=== PATIENT | male | born 1935 | race Caucasian/White ===

== ENCOUNTER 2022-04-08 23:13 | Emergency (ER) | payer MEDICARE ==
[2022-04-09 00:07] LABS: #Eosinphils 0.1 thou/uL (0.0-0.7); #Lymphocytes 1.2 thou/uL (1.20-3.40); #Monocytes 1.2 thou/uL (0.11-0.59); #Neutrophils 8.8 thou/uL (1.40-6.50); %Basophils 0.1 % (0.0-1.0); %Eosinophils 0.8 % (0.0-10.0); %Lymphocytes 10.6 % (21.0-51.0); %Monocytes 10.9 % (0.0-10.0); %Neutrophils 77.6 % (42.0-75.0); Hemoglobin 11.4 g/dL (14.0-18.0); Mean Corpuscular Hemoglobin 31.6 pg (27.0-31.0); Mean Corpuscular Volume 95.6 fL (78.0-98.0); Mean Platelet Volume 6.9 fL (7.4-10.4); Platelet Count 173 thou/uL (130-400); RBC Distribution Width 13.7 % (11.5-14.5); Red Blood Cell (RBC) Count 3.62 mill/uL (4.70-6.10); White Blood Cell (WBC) Count 11.4 thou/uL (4.8-10.8)
[2022-04-09 00:23] LABS: ALT (SGPT) 22 U/L (8-55); AST (SGOT) 15 U/L (5-34); Albumin 3.1 g/dL (3.4-4.8); Alkaline Phosphatase 189 U/L (40-110); Anion Gap 13 mmol/L (10-20); BUN (Urea Nitrogen) 17 mg/dL (8.4-25.7); Bilirubin, Total 0.5 mg/dL (0.2-1.2); Calc. Creatinine Clearance 0 mL/min (70-130); Calcium 8.8 mg/dL (7.8-10.44); Carbon Dioxide 20 mmol/L (23-31); Chloride 109 mmol/L (98-107); Estimated GFR 42; Globulin 2.7 g/dL (2.4-3.5); Glucose 134 mg/dL (83-110); Potassium 4.1 mmol/L (3.5-5.1); Protein, Total 5.8 g/dL (5.8-8.1); Sodium 138 mmol/L (136-145)
[2022-04-09] MEDS ORDERED: Acetaminophen 325 MG TAB ONE (00:33)
== END 2022-04-09 03:48 ==
LOC: ERS 23:13
DX: R51.9 Headache, unspecified (principal)
CPT/HCPCS: 36415; 36416; 70450; 71045; 72125; 80053; 83880; 84484; 85025; 93005

== ENCOUNTER 2022-09-05 11:31 | Emergency (ER) | payer MEDICARE, OTHER | END 2022-09-05 14:14 | disposition home or self-care (01) | LOC: ERS 11:31 | DX: Z04.1 Encounter for examination and observation following transport accident (principal) | CPT/HCPCS: 70450; 72125 ==